=== PATIENT | male | born 1990 | race Two or more races ===

== ENCOUNTER 2021-09-25 23:43 | Emergency (ER) | payer SELFPAY ==
[~2021-09-25] VITALS: Ht 175.3 cm; Wt 60.0 kg
[2021-09-26] MEDS ORDERED: VISCOUS LIDOCAINE 2% 15 ML UDC MM STA (00:07)
[2021-09-26 01:44] VITALS: BP 115/78
== END 2021-09-26 01:46 | disposition home or self-care (01) ==
LOC: ER 23:43
DX: T16.1XXA Foreign body in right ear, initial encounter (principal); J45.909 Unspecified asthma, uncomplicated; X58.XXXA Exposure to other specified factors, initial encounter; Y93.89 Activity, other specified; Y92.018 Other place in single-family (private) house as the place of occurrence of the external cause
CPT/HCPCS: 69200; 99284